=== PATIENT | female | born 1985 | race Hispanic/Latino ===

== ENCOUNTER 2023-09-18 22:23 | Emergency (ER) | payer OTHER ==
[~2023-09-18] VITALS: Ht 160 cm; Wt 74.8 kg
[2023-09-18 22:30] VITALS: BP 164/95; PULSE 91; RESP 18; O2SAT 100
== END 2023-09-18 23:47 | disposition home or self-care (01) ==
LOC: EDH 22:23
DX: S09.8XXA Other specified injuries of head, initial encounter (principal); Z98.890 Other specified postprocedural states; X08.8XXA Exposure to other specified smoke, fire and flames, initial encounter; Y93.89 Activity, other specified; Y92.89 Other specified places as the place of occurrence of the external cause; Y99.8 Other external cause status
CPT/HCPCS: 99281